=== PATIENT | male | born 1960 | race Caucasian/White ===

== ENCOUNTER 2023-09-10 02:46 | Inpatient (IN) | payer MEDICARE, OTHER ==
[2023-09-10 03:49] LABS: Basophils % (A) 0 %; Eosinophils # (A) 0.1 k/uL (0-0.7); Eosinophils % (A) 1 %; HCT 42.6 % (39.0-53.0); HGB 14.4 gm/dL (13.0-17.5); Lymphocytes # (A) 1.2 k/uL (1.0-4.8); Lymphocytes % (A) 12 %; MCH 29.6 pg (25.0-35.0); MCHC 33.7 g/dL (31.0-37.0); MCV 87.7 fL (80.0-100.0); Mean Platelet Volume 7.5; Monocytes # (A) 0.5 k/uL (0-1.0); Monocytes % (A) 4 %; Neutrophils # (A) 8.3 k/uL (1.3-7.7); Neutrophils % (A) 82 %; Platelet Count 258 k/uL (150-450); RBC 4.86 m/uL (4.30-5.90); RDW 12.8 % (11.5-15.5); WBC 10.1 k/uL (3.8-10.6)
[2023-09-10 04:11] LABS: Prothrombin Time 11.1 sec (10.0-12.5)
[2023-09-10 04:15] LABS: ALT 21 U/L (4-49); AST 25 U/L (17-59); African American GFR (CKD) >90 (>60 ml/min/1.73 sqM); Albumin 4.1 g/dL (3.5-5.0); Alkaline Phosphatase 79 U/L (38-126); Anion Gap 6 mmol/L; Blood Urea Nitrogen 26 mg/dL (9-20); Calcium 8.6 mg/dL (8.4-10.2); Carbon Dioxide 25 mmol/L (22-30); Chloride 104 mmol/L (98-107); Glucose 215 mg/dL (74-99); Lipase 267 U/L (23-300); Non-African American GFR(CKD) >90 (>60 ml/min/1.73 sqM); Potassium 4.3 mmol/L (3.5-5.1); Sodium 135 mmol/L (137-145); Total Bilirubin 0.7 mg/dL (0.2-1.3); Total Protein 6.1 g/dL (6.3-8.2)
[2023-09-10 04:17] LABS: Partial Thromboplastin Time 20.3 sec (22.0-30.0)
--- NOTE | 2023-09-10 04:20 | XR ---
EXAMINATION TYPE: XR chest 1V portable DATE OF EXAM: 09/10/2023 COMPARISON: NONE HISTORY: Hypoxia. TECHNIQUE: Single frontal view of the chest is obtained. FINDINGS: Elevated left hemidiaphragm. Mild reticular increased markings bilaterally. There is no foc al air space opacity, pleural effusion, or pneumothorax seen. The cardiac silhouette size is within normal limits. Suspicious surgical change to the cervical spine is partially imaged. IMPRESSION: Suspect mild bilateral parenchymal fibrosis. Cannot exclude mild bilateral interstitial edema. No suspicious acute focal infiltrate.
[2023-09-10 04:23] LABS: NT-Pro-B-Type Natriuretic Pept <20 pg/mL
--- NOTE | 2023-09-10 04:47 | ED ---
General Adult HPI - General Chief complaint: Nausea/Vomiting/Diarrhea Stated complaint: Nausea, Vomiting Time Seen by Provider: 09/10/23 02:55 Source: patient, EMS Mode of arrival: EMS - History of Present Illness Initial comments: 63-year-old male with past medical history of asthma who presents emergency department reporting nausea vomiting. Patient woke from sleep felt nauseated and began vomiting. He did receive 4 mg of Zofran by EMS. Arrives and states that he feels better. Patient placed on the monitor and has oxygen saturations of 82%. He denies wearing oxygen. Does admit to a history of asthma but denies feeling short of breath at this time. He denies any chest pain. No abdominal pain. Denies diarrhea. No sick contacts with similar symptoms. No fevers. No other alleviating, precipitating or modifying factors - Related Data Home Medications Medication Instructions Recorded Confirmed metFORMIN HCL [Glucophage] 500 mg PO BID 09/10/23 09/10/23 Previous Rx's Medication Instructions Recorded Amoxic-Pot Clav 875-125Mg 1 tab PO BID 4 Days #8 tab 09/12/23 [Augmentin 875-125] Allergies Allergy/AdvReac Type Severity Reaction Status Date / Time No Known Allergies Allergy Verified 09/10/23 07:20 Review of Systems ROS Statement: Those systems with pertinent positive or pertinent negative responses have been documented in the HPI. ROS Other: All systems not noted in ROS Statement are negative. Past Medical History Past Medical History: Asthma Past Surgical History: Back Surgery Smoking Status: Unknown if ever smoked General Exam Limitations: physical limitation General appearance: alert, in no apparent distress Head exam: Present: atraumatic, normocephalic, normal inspection Eye exam: Present: normal appearance, PERRL, EOMI. Absent: scleral icterus, conjunctival injection, periorbital swelling ENT exam: Present: normal exam, mucous membranes moist Neck exam: Present: normal inspection. Absent: tenderness, meningismus, lymphadenopathy Respiratory exam: Present: other (Home). Absent: respiratory distress, wheezes, rales, rhonchi, stridor Cardiovascular Exam: Present: regular rate, normal rhythm, normal heart sounds. Absent: systolic murmur, diastolic murmur, rubs, gallop, clicks GI/Abdominal exam: Present: soft, normal bowel sounds. Absent: distended, tenderness, guarding, rebound, rigid Extremities exam: Present: normal inspection, full ROM, normal capillary refill. Absent: tenderness, pedal edema, joint swelling, calf tenderness Back exam: Present: normal inspection Neurological exam: Present: alert, oriented X3, CN II-XII intact Psychiatric exam: Present: normal affect, normal mood Skin exam: Present: warm, dry, intact, normal color. Absent: rash Course Vital Signs 09/10/23 09/10/23 09/10/23 02:53 03:49 04:30 Temperature 97.6 F Pulse Rate 86 87 Respiratory 19 20 Rate Blood Pressure 124/66 123/78 O2 Sat by Pulse 83 L 92 L 94 L Oximetry 09/10/23 09/10/23 05:39 06:00 Temperature Pulse Rate 91 99 Respiratory 24 20 Rate Blood Pressure 139/84 136/88 O2 Sat by Pulse 92 L 96 Oximetry Medical Decision Making - Medical Decision Making Was pt. sent in by a medical professional or institution (, PA, SHAREMILKER, urgent care, hospital, or fpc...) When possible be specific @ -No Did you speak to anyone other than the patient for history (EMS, parent, family, police, friend...)? What history was obtained from this source @ -I spoke with the patient's obiyks-ez-ljn who is his power of trade mark attorney. I al so spoke with EMS Did you review nursing and triage notes (agree or disagree)? Why? @ -I reviewed and agree with nursing and triage notes Were old charts reviewed (outside hosp., previous admission, EMS record, old EKG, old radiological studies, urgent care reports/EKG's, fpc records)? Report findings @ -No old charts were reviewed Differential Diagnosis (chest pain, altered mental status, abdominal pain women, abdominal pain men, vaginal bleeding, weakness, fever, dyspnea, syncope, headache, dizziness, GI bleed, back pain, seizure, CVA, palpatations, mental health, musculoskeletal)? @ -Differential Dyspnea: Coronary syndrome, arrhythmia, tamponade, asthma, COPD, pulmonary embolism, pneumonia, pneumothorax, pulmonary effusion, anaphylaxis, diabetic ketoacidosis, flailed chest, pulmonary contusion, diaphragmatic rupture, anemia, neuromuscular, this is not meant to be an all-inclusive list. EKG interpreted by me (3pts min.). @ -Yes and demonstrates sinus rhythm with a rate of 86. IN interval 108. QRS 82. QTc of 427. No acute ST segment elevations or depressions X-rays interpreted by me (1pt min.). @ -Demonstrates possible venous congestion CT interpreted by me (1pt min.). @ -None done U/S interpreted by me (1pt. min.). @ -None done What testing was considered but not performed or refused? (CT, X-rays, U/S, labs)? Why? @ -None What meds were considered but not given or refused? Why? @ -None Did you discuss the management of the patient with other professionals (professionals i.e. , PA, SHAREMILKER, lab, RT, psych nurse, psychiatric social worker supervisor, veneer gluer, teacher, medical laboratory technical officer, lining caser)? Give summary @ -I spoke with Gavino from pulmonology as well as Dr. Oneal Was smoking cessation discussed for >3mins.? @ -No Was critical care preformed (if so, how long)? @ -No Were there social determinants of health that impacted care today? How? (Homelessness, low income, unemployed, alcoholism, drug addiction, transportation, low edu. Level, literacy, decrease access to med. care, longterm, rehab)? @ -No Was there de-escalation of care discussed even if they declined (Discuss DNR or withdrawal of care, Hospice)? DNR status @ -No What co-morbidities impacted this encounter? (DM, HTN, Smoking, COPD, CAD, Cancer, CVA, ARF, Chemo, Hep., AIDS, mental health diagnosis, sleep apnea, morbid obesity)? @ -TBI Was patient admitted / discharged? Hospital course, mention meds given and route, prescriptions, significant lab abnormalities, going to OR and other pertinent info. @ -Upon arrival patient seen and evaluated in room 9. Thorough history and physical exam was performed. Patient is hypoxic and therefore he is placed on a nonrebreather. We are able to titrate this down to 5 L of oxygen. Laboratory studies are conducted. Chest x-ray was performed. Patient will be admitted for hypoxic respiratory failure with the suspicion of aspiration pneumonia. He is covered with antibiotics. Patient is stable condition and taken to the floor Undiagnosed new problem with uncertain prognosis? @ -No Drug Therapy requiring intensive monitoring for toxicity (Heparin, Nitro, Insulin, Cardizem)? @ -No Were any procedures done? @ -No Diagnosis/symptom? @ -Acute hypoxic respiratory failure, acute aspiration pneumonia Acute, or Chronic, or Acute on Chronic? @ -Acute Uncomplicated (without systemic symptoms) or Complicated (systemic symptoms)? @ -Complicated Side effects of treatment? @ -No Exacerbation, Progression, or Severe Exacerbation? @ -No Poses a threat to life or bodily function? How? (Chest pain, [place], [place], pneumonia, PE, COPD, DKA, ARF, appy, cholecystitis, CVA, Diverticulitis, Homicidal, Suicidal, threat to staff... and all critical care pts) @ -No - Lab Data Result diagrams: 09/12/23 03:18 09/12/23 03:18 Lab Results 09/10/23 09/10/23 09/10/23 Range/Units 03:36 03:36 03:36 WBC 10.1 (3.8-10.6) k/uL RBC 4.86 (4.30-5.90) m/uL Hgb 14.4 (13.0-17.5) gm/dL Hct 42.6 (39.0-53.0) % MCV 87.7 (80.0-100.0) fL MCH 29.6 (25.0-35.0) pg MCHC 33.7 (31.0-37.0) g/dL RDW 12.8 (11.5-15.5) % Plt Count 258 (150-450) k/uL MPV 7.5 Neutrophils % 82 % Lymphocytes % 12 % Monocytes % 4 % Eosinophils % 1 % Basophils % 0 % Neutrophils # 8.3 H (1.3-7.7) k/uL Lymphocytes # 1.2 (1.0-4.8) k/uL Monocytes # 0.5 (0-1.0) k/uL Eosinophils # 0.1 (0-0.7) k/uL Basophils # 0.0 (0-0.2) k/uL PT 11.1 (10.0-12.5) sec INR 1.0 (<1.2) APTT 20.3 L (22.0-30.0) sec D-Dimer 0.68 H (<0.60) mg/L FEU Sodium 135 L (137-145) mmol/L Potassium 4.3 (3.5-5.1) mmol/L Chloride 104 (98-107) mmol/L Carbon Dioxide 25 (22-30) mmol/L Anion Gap 6 mmol/L BUN 26 H (9-20) mg/dL Creatinine 0.62 L (0.66-1.25) mg/dL Est GFR (CKD-EPI)AfAm >90 (>60 ml/min/1.73 sqM) Est GFR (CKD-EPI)NonAf >90 (>60 ml/min/1.73 sqM) Glucose 215 H (74-99) mg/dL Plasma Lactic Acid Marques (0.7-2.0) mmol/L Calcium 8.6 (8.4-10.2) mg/dL Total Bilirubin 0.7 (0.2-1.3) mg/dL AST 25 (17-59) U/L ALT 21 (4-49) U/L Alkaline Phosphatase 79 (38-126) U/L Troponin I (0.000-0.034) ng/mL NT-Pro-B Natriuret Pep <20 pg/mL Total Protein 6.1 L (6.3-8.2) g/dL Albumin 4.1 (3.5-5.0) g/dL Lipase 267 (23-300) U/L 09/10/23 09/10/23 Range/Units 03:36 03:36 WBC (3.8-10.6) k/uL RBC (4.30-5.90) m/uL Hgb (13.0-17.5) gm/dL Hct (39.0-53.0) % MCV (80.0-100.0) fL MCH (25.0-35.0) pg MCHC (31.0-37.0) g/dL RDW (11.5-15.5) % Plt Count (150-450) k/uL MPV Neutrophils % % Lymphocytes % % Monocytes % % Eosinophils % % Basophils % % Neutrophils # (1.3-7.7) k/uL Lymphocytes # (1.0-4.8) k/uL Monocytes # (0-1.0) k/uL Eosinophils # (0-0.7) k/uL Basophils # (0-0.2) k/uL PT (10.0-12.5) sec INR (<1.2) APTT (22.0-30.0) sec D-Dimer (<0.60) mg/L FEU Sodium (137-145) mmol/L Potassium (3.5-5.1) mmol/L Chloride (98-107) mmol/L Carbon Dioxide (22-30) mmol/L Anion Gap mmol/L BUN (9-20) mg/dL Creatinine (0.66-1.25) mg/dL Est GFR (CKD-EPI)AfAm (>60 ml/min/1.73 sqM) Est GFR (CKD-EPI)NonAf (>60 ml/min/1.73 sqM) Glucose (74-99) mg/dL Plasma Lactic Acid Marques 1.1 (0.7-2.0) mmol/L Calcium (8.4-10.2) mg/dL Total Bilirubin (0.2-1.3) mg/dL AST (17-59) U/L ALT (4-49) U/L Alkaline Phosphatase (38-126) U/L Troponin I <0.012 (0.000-0.034) ng/mL NT-Pro-B Natriuret Pep pg/mL Total Protein (6.3-8.2) g/dL Albumin (3.5-5.0) g/dL Lipase (23-300) U/L Disposition Clinical Impression: Hypoxia, Aspiration into airway, Vomiting Disposition: ADMITTED IP TO THIS [facility] Condition: Stable Is patient prescribed a controlled substance at d/c from ED?: No Time of Disposition: 05:46 Decision to Admit Reason: Admit from EC Decision Date: 09/10/23 Decision Time: 05:46
--- NOTE | 2023-09-10 05:14 | CT ---
EXAMINATION TYPE: CT chest angio for PE DATE OF EXAM: 09/10/2023 COMPARISON: NONE HISTORY: hypoxia CT DLP: 293.1 mGycm. Automated Exposure Control for Dose Reduction was Utilized. CONTRAST: CTA scan of the thorax is performed with IV Contrast, patient injected with 100 mL of Isovue 370, pul monary embolism protocol. MIP Images are created on CT scanner and reviewed. FINDINGS: LUNGS: Dependent atelectasis and/or consolidation in the bilateral lower lobes and in the right middl e lobe along the fissure is seen. Some mild central peribronchial wall thickening. Elevated left blank diaphragm. No pleural effusion or pneumothorax seen bilaterally. MEDIASTINUM: There is satisfactory enhancement of the pulmonary artery and its branches, there is no CT evidence for pulmonary embolism. Is some enhancement of the aorta without aneurysm or dissection. There are no greater than 1 cm hilar or mediastinal lymph nodes. No cardiomegaly or pericardial ef fusion is seen. OTHER: Please refer to same day CT abdomen and pelvis report for complete details in the upper abdome n. There is right greater than left bilateral gynecomastia IMPRESSION: 1. No CT evidence for acute pulmonary embolism. 2. Elevated left hemidiaphragm. There is dependent atelectasis and/or consolidation in the bilateral lower lobes and along the fissure in the right middle lobe. There is central bronchial wall thickenin g. Correlate for bronchiolitis.
--- NOTE | 2023-09-10 05:26 | CT ---
EXAMINATION TYPE: CT abdomen pelvis w con DATE OF EXAM: 09/10/2023 COMPARISON: None. HISTORY: hypoxia. Abdominal pain and vomiting. CT DLP: 1009.4 mGycm, Automated Exposure Control for Dose Reduction was Utilized. CONTRAST: CT scan of the abdomen and pelvis is performed with oral and with IV Contrast, patient injected with 100 mL of Isovue 370. FINDINGS: LUNG BASES: Please refer to same day CTA chest report complete details on the lung bases. Elevated le ft hemidiaphragm is seen.. LIVER/GB: No significant abnormality is appreciated. PANCREAS: No significant abnormality is seen. SPLEEN: Single punctate calcification in the spleen axial image 24 it is presumed benign. ADRENALS: No significant abnormality is seen. KIDNEYS: Subcentimeter simple appearing thin-walled cyst right kidney axial image 33. No hydronephros is seen bilaterally. BOWEL: No abnormal small or large bowel dilatation. Moderately distended stomach. PROSTATE/SEMINAL VESICLES: No gross abnormality seen. LYMPH NODES: No greater than 1cm abdominal or pelvic lymph nodes are appreciated. OSSEOUS STRUCTURES: Moderate narrowing of both hip joints. OTHER: No significant additional abnormality is seen. IMPRESSION: No bowel obstruction. Moderately distended stomach with air-fluid level, cannot exclude gastroparesis or gastric outlet obstruction. No obvious obstructing mass seen. No acute finding other ellis seen.
[2023-09-10] MEDS ORDERED: NALOXONE 0.4 MG/ML 1 ML VIAL IV PRN (05:46)
[2023-09-10 05:56] LABS: Appearance,Urine Clear (Clear); Bilirubin,Urine Negative (Negative); Blood,Urine Negative (Negative); Color,Urine Colorless; Glucose,Urine (UA) 2+ (Negative); Ketones,Urine Negative (Negative); Leukocyte Esterase,Urine Negative (Negative); Nitrite,Urine Negative (Negative); PH, Urine 6.5 (5.0-8.0); Protein,Urine Negative (Negative); Urobilinogen,Urine <2.0 mg/dL (<2.0)
[2023-09-10] MEDS: methylPREDNISolone SOD SUCCI 125 MG/2 ML VIAL IV STA (06:09)
[2023-09-10] MEDS: cefTRIAXone IN SWFI 1,000 MG/10 ML SYRINGE IVP STA (06:23)
[2023-09-10] MEDS ORDERED: ONDANSETRON 4 MG/2 ML VIAL IVP PRN (06:49)
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
[2023-09-10] MEDS ORDERED: DEXTROSE 50% SYRINGE 50 ML IVP PRN ×2 (07:40)
[2023-09-10] MEDS: INSULIN ASPART (NovoLOG) 100 UNIT/ML VIAL SQ SCH (08:43)
[2023-09-10] MEDS: IPRATROPIUM-ALBUTEROL 3 ML NEB INHALATION SCH (09:42)
[2023-09-10] MEDS: IPRATROPIUM-ALBUTEROL 3 ML NEB INHALATION STA (10:03)
[2023-09-10] MEDS: PIPERACILLIN-TAZOBACTAM 3.375 GM in SODIUM CHLORIDE 0.9% 100 ML IVPB SCH (10:08)
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
[2023-09-10 15:35] LABS: Glucose,Whole Blood 600 mg/dL (70-110)
[2023-09-10 15:35] LABS: Glucose,Whole Blood 410 mg/dL (70-110)
[2023-09-10] MEDS: INSULIN ASPART (NovoLOG) 100 UNIT/ML VIAL SQ ONE (15:49)
[2023-09-10 17:16] LABS: Glucose,Whole Blood 419 mg/dL (70-110)
[2023-09-10] MEDS: SODIUM CHLORIDE 0.9% 1,000 ML IV SCH (18:26)
[2023-09-10 21:31] LABS: Glucose,Whole Blood 349 mg/dL (70-110)
[2023-09-10 21:31] LABS: Glucose,Whole Blood 575 mg/dL (70-110)
[2023-09-10 21:33] LABS: Glucose,Whole Blood 320 mg/dL (70-110)
[2023-09-11 01:28] LABS: Glucose,Whole Blood 230 mg/dL (70-110)
[2023-09-11 08:21] LABS: Glucose,Whole Blood 332 mg/dL (70-110)
[2023-09-11] MEDS: ENOXAPARIN 40 MG/0.4 ML SYRINGE SQ SCH (08:36)
[2023-09-11 08:59] LABS: Basophils # (A) 0.02 X 10*3/uL (0.00-0.10); Basophils % (A) 0.2 %; Eosinophils # (A) 0.22 X 10*3/uL (0.04-0.35); Eosinophils % (A) 1.8 %; HCT 35.9 % (39.6-50.0); HGB 11.9 g/dL (13.0-17.0); Lymphocytes # (A) 1.44 X 10*3/uL (0.90-5.00); Lymphocytes % (A) 11.8 %; MCH 29.7 pg (27.0-32.0); MCHC 33.1 g/dL (32.0-37.0); MCV 89.5 FL (80.0-97.0); Mean Platelet Volume 10.3 FL (9.5-12.2); Monocytes # (A) 1.05 X 10*3/uL (0.20-1.00); Monocytes % (A) 8.6 %; NRBC Per 100 WBC 0 X 10*3/uL (0.00-0.01); Neutrophils # (A) 9.43 X 10*3/uL (1.80-7.70); Neutrophils % (A) 77.1 %; Platelet Count 233 X 10*3/uL (140-440); RBC 4.01 X 10*6/uL (4.40-5.60); RDW 12.8 % (11.5-14.5); WBC 12.22 X 10*3/uL (4.50-10.00)
[2023-09-11 09:04] LABS: BUN/Creat Ratio 22.14 Ratio (12.00-20.00); Blood Urea Nitrogen 15.5 mg/dL (9.0-27.0); Chloride 108 mmol/L (96-109); Glucose 189 mg/dL (70-110); Potassium 4.1 mmol/L (3.5-5.5); Sodium 143 mmol/L (135-145)
[2023-09-11 09:05] LABS: Calcium 8.3 mg/dL (8.7-10.3); Carbon Dioxide 24.6 mmol/L (21.6-31.8)
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
[2023-09-11 14:09] LABS: Glucose,Whole Blood 245 mg/dL (70-110)
[2023-09-11 20:00] LABS: Glucose,Whole Blood 233 mg/dL (70-110)
[2023-09-12 02:01] LABS: Glucose,Whole Blood 116 mg/dL (70-110)
[2023-09-12 07:53] VITALS: RESP 16
[2023-09-12 08:27] LABS: Glucose,Whole Blood 305 mg/dL (70-110)
[2023-09-12 08:47] LABS: Basophils # (A) 0.03 X 10*3/uL (0.00-0.10); Basophils % (A) 0.3 %; Eosinophils # (A) 1.19 X 10*3/uL (0.04-0.35); Eosinophils % (A) 10.9 %; HGB 11.6 g/dL (13.0-17.0); Lymphocytes # (A) 2.69 X 10*3/uL (0.90-5.00); Lymphocytes % (A) 24.5 %; MCH 29.5 pg (27.0-32.0); MCHC 32.2 g/dL (32.0-37.0); MCV 91.6 FL (80.0-97.0); Mean Platelet Volume 10.7 FL (9.5-12.2); Monocytes # (A) 0.82 X 10*3/uL (0.20-1.00); Monocytes % (A) 7.5 %; NRBC Per 100 WBC 0.02 X 10*3/uL (0.00-0.01); Neutrophils % (A) 56.5 %; Platelet Count 234 X 10*3/uL (140-440); RBC 3.93 X 10*6/uL (4.40-5.60); RDW 13.1 % (11.5-14.5); WBC 10.96 X 10*3/uL (4.50-10.00)
[2023-09-12 09:05] LABS: Blood Urea Nitrogen 10.5 mg/dL (9.0-27.0); Calcium 8.2 mg/dL (8.7-10.3); Carbon Dioxide 23.4 mmol/L (21.6-31.8); Chloride 112 mmol/L (96-109); Glucose 130 mg/dL (70-110); Potassium 4.3 mmol/L (3.5-5.5); Sodium 143 mmol/L (135-145)
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
[2023-09-12 14:13] VITALS: BP 143/78; PULSE 107; TEMP 97.9
--- NOTE | 2023-09-12 14:29 | XR ---
EXAMINATION TYPE: XR chest 1V DATE OF EXAM: 09/12/2023 HISTORY: Shortness of breath. COMPARISON: 09/10/23 TECHNIQUE: Single view of the chest is submitted. FINDINGS: Demonstrated are scattered senescent parenchymal change. There is no evidence for focal infiltrate. The heart is stable. Hilar and mediastinal structures are within normal limits. Degenerative changes are seen of the dorsal spine. IMPRESSION: 1. Chronic changes without evidence for acute pulmonary disease.
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
--- NOTE | 2023-09-14 09:41 | CDI ---
Documentation Clarification Form Date: 09/14/2023 From: Ju Pollack Phone: [phone] Admit Date: 09/10/2023 05:48:00 AM Patient Name: Rodney Boggs Visit Number: [id number] Discharge Date: 09/12/2023 04:03:00 PM ATTENTION: The Clinical Documentation Specialists (CDI) and [facility] Coding Staff appreciate your assistance in clarifying documentation. Please respond to the clarification below the line at the bottom and electronically sign. The CDI & [facility] Coding staff will review the response and follow-up if needed. Please note: Queries are made part of the Legal Health Record. If you have any questions, please contact the author of this message via ITS. Dr. Laura Rich: Sepsis is documented in the IM progress note 09/10 which may lack sufficient clinical evidence/support in the medical record. Additional clarification is requested. History/Risk Factors: 63-year-old male with a history of DM2, TBI. asthma who presents with nausea and vomiting Clinical Indicators: 09/09 Triage VS 124, 166, 97.6, 86, 19, 83% NRB 09/10 IM PN, Subjective: "Acute hypoxic respiratory failure, Aspiration pneumonia with sepsis on admission." 09/11 Discharge Summary, Discharge diagnosis: "Acute hypoxic respiratory failure, Aspiration pneumonia with sepsis on admission." 09/09-09/11 Tmax 98.3 Heart rate max 108 Respiratory rate max: 24 NRB 09/09, then nasal cannula 09/09-09/11 09/09-09/11 WBC 10.1, 12.22, 10.96 09/09 Lactic acid 1.1 09/09-09/11 Glucose range 600-116 09/09 Blood culture no growth after 72 hours 09/09 CT Chest, Impression: "2.Elevated left hemidiaphragm.There is dependent atelectasis and/or consolidation in the bilateral lower lobes and along the fissure in the right middle lobe. There is central bronchial wall thickening. Correlate for bronchiolitis." Treatment: Zosyn 3.375gram IV [id number] start 09/09 Normal Saline 125cc/hour start 09/09 Please clarify if Sepsis is a valid diagnosis? [ ] No, Sepsis is ruled out [ X ] Yes, Sepsis is present as evidence by (additional clinical support): [ ] Other (please specify diagnosis) [ ] Unable to determine MTDD
--- NOTE | 2023-09-14 13:34 | CDI ---
Documentation Clarification Form Date: 09/14/23 From: Liseth Oconnor Admit Date: 09/10/2023 05:48:00 AM Patient Name: Rodney Boggs Visit Number: [id number] Discharge Date: 09/12/2023 04:03:00 PM ATTENTION: The Clinical Documentation Specialists (CDI) and [facility] Coding Staff appreciate your assistance in clarifying documentation. Please respond to the clarification below the line at the bottom and electronically sign. The CDI & [facility] Coding staff will review the response and follow-up if needed. Please note: Queries are made part of the Legal Health Record. If you have any questions, please contact the author of this message via ITS. Dr. Laura Rich, Type 2 Diabetes is documented in the H&P, 09/10 PN and discharge summary. Additional specificity regarding the diabetes diagnosis is requested. History/Risk Factors: TBI, asthma, aspiration pneumonia, acute respiratory failure Clinical Indicators: POC Glucose: 600, 410, 419, 575, 349, 320, 230, 332, 245, 233, 116, 305 Treatment: Novolog Please clarify the type of diabetes, if known: [ X ] Diabetes Type 2 with hyperglycemia [ ] Diabetes Type 2 with ketoacidosis [ ] Diabetes Type 2, hyperosmolar [ ] Other, please specify [ ] Unable to Determine MTDD
== END 2023-09-12 16:03 | disposition home or self-care (01) | DRG 871 ==
LOC: EDBD → EC 02:46 → 4SSUR 05:48
PROVIDERS: ADMIT Internal Medicine; ATTEND Internal Medicine
DX: A41.9 Sepsis, unspecified organism (principal); J18.9 Pneumonia, unspecified organism; J96.01 Acute respiratory failure with hypoxia; J69.0 Pneumonitis due to inhalation of food and vomit; J21.9 Acute bronchiolitis, unspecified; E11.65 Type 2 diabetes mellitus with hyperglycemia; G83.10 Monoplegia of lower limb affecting unspecified side; J45.909 Unspecified asthma, uncomplicated; F10.11 Alcohol abuse, in remission; M48.02 Spinal stenosis, cervical region; K31.89 Other diseases of stomach and duodenum; D64.9 Anemia, unspecified; R32 Unspecified urinary incontinence; Z79.84 Long term (current) use of oral hypoglycemic drugs; Z87.891 Personal history of nicotine dependence; Z87.820 Personal history of traumatic brain injury; Z98.1 Arthrodesis status; Z99.3 Dependence on wheelchair
CPT/HCPCS: 36415; 71045; 71275; 74177; 80048; 80053; 81003; 83036; 83605; 83690; 83880; 84484; 85025; 85379; 85610; 85730; 87040; 93005; 94640; 94760; 96374; 96375; 99285

== ENCOUNTER → 2023-10-08 | Outpatient (CLI) | payer MEDICARE, OTHER ==
--- NOTE | 2023-10-08 13:59 | MR ---
EXAMINATION TYPE: MR cervical spine wo/w con DATE OF EXAM: 10/08/2023 COMPARISON: None HISTORY: Stenosis, BUE radiculopathy, headaches, hx surgery. Also evaluate for loose hardware. CONTRAST: Performed utilizing 6.5 mL intravenous Gadavist gadolinium contrast. TECHNIQUE: Multiplanar multiecho imaging on a 3.0 Marilia magnet is performed through the cervical spin e. FINDINGS: The craniovertebral junction is normal. Vertebral body alignment is normal. There is significant susceptibility artifact extending from C3 through T1. Spinal canal through these levels are essentially nondiagnostic on T1-weighted images. This is slight improvement of the edges on T2-weighted sequences. There is a slight scoliosis within the cervical thoracic junction region. Loss of disc height is evid ent for through C7-T1. There is increased signal on T2-weighted sequences within the small appearing spinal cord at the C1-2 level. No cord contact or compression is evident at this time. Following contrast administration no suspicious enhancement is evident. IMPRESSION: 1. Severely limited and nondiagnostic MRI cervical spine. 2. Note is made of a small caliber spinal cord with increased signal at the C1 level consider some en cephalomalacia. No cord contact or stenosis evident at this level. 3. Multilevel loss of disc height predominantly C3-C7 T1.
== END | disposition home or self-care (01) ==
LOC: RADMRIMAIN 11:03
PROVIDERS: ATTEND Internal Medicine
DX: M48.02 Spinal stenosis, cervical region (principal); M54.12 Radiculopathy, cervical region; R51.9 Headache, unspecified; G93.89 Other specified disorders of brain
CPT/HCPCS: 72156; A9585

== ENCOUNTER → 2023-10-26 | Outpatient (CLI) | payer MEDICARE, OTHER ==
[2023-10-26 14:49] LABS: Basophils # (A) 0.02 X 10*3/uL (0.00-0.10); Basophils % (A) 0.3 %; Eosinophils # (A) 0.38 X 10*3/uL (0.04-0.35); Eosinophils % (A) 4.9 %; HCT 45.1 % (39.6-50.0); HGB 14.7 g/dL (13.0-17.0); Lymphocytes % (A) 28.6 %; MCH 29.5 pg (27.0-32.0); MCHC 32.6 g/dL (32.0-37.0); MCV 90.4 FL (80.0-97.0); Mean Platelet Volume 10.3 FL (9.5-12.2); Monocytes # (A) 0.67 X 10*3/uL (0.20-1.00); Monocytes % (A) 8.7 %; NRBC Per 100 WBC 0 X 10*3/uL (0.00-0.01); Neutrophils # (A) 4.41 X 10*3/uL (1.80-7.70); Neutrophils % (A) 57.4 %; Platelet Count 276 X 10*3/uL (140-440); RBC 4.99 X 10*6/uL (4.40-5.60); RDW 12.6 % (11.5-14.5); WBC 7.69 X 10*3/uL (4.50-10.00)
[2023-10-26 17:32] LABS: Microalbumin Creatinine Ratio <11 mg/g Cr (0-30)
[2023-10-26 17:42] LABS: ALT 28 U/L (10-49); AST 22 U/L (14-35); Albumin 4.8 g/dL (3.8-4.9); Albumin/Globulin Ratio 2.18 Ratio (1.60-3.17); Alkaline Phosphatase 90 U/L (41-126); BUN/Creat Ratio 21.71 Ratio (12.00-20.00); Blood Urea Nitrogen 15.2 mg/dL (9.0-27.0); Calcium 9.3 mg/dL (8.7-10.3); Carbon Dioxide 21.7 mmol/L (21.6-31.8); Chloride 102 mmol/L (96-109); Chol/HDL Ratio 3.32 Ratio; Globulin 2.2 g/dL (1.6-3.3); Glucose 126 mg/dL (70-110); LDL Cholesterol,Calculated 139.9 mg/dL (0.0-131.0); Potassium 4.6 mmol/L (3.5-5.5); Sodium 140 mmol/L (135-145); Total Bilirubin 0.3 mg/dL (0.3-1.2); VLDL Calculation 18.84 mg/dL (5.00-40.00)
== END | disposition home or self-care (01) ==
LOC: LABWHC1 09:41
PROVIDERS: ATTEND Internal Medicine
DX: Z12.5 Encounter for screening for malignant neoplasm of prostate (principal); E11.9 Type 2 diabetes mellitus without complications
CPT/HCPCS: 80061; 80053; 84443; 85025; 82043; 82570; 83036; 36415; G0103